=== PATIENT | male | born 1975 | race Hispanic/Latino ===

== ENCOUNTER 2025-04-25 14:57 | Emergency (ER) | payer OTHER ==
[2025-04-25 15:00] VITALS: PULSE 91; RESP 16; TEMP 98.9
[2025-04-25] MEDS ORDERED: IOPAMIDOL 370 MG/ML 100 ML INFUS..BTL INJ ONE (16:35)
[2025-04-25] MEDS: SODIUM CHLORIDE 0.9% 1000ML 1,000 ML IV ONE (17:15)
[2025-04-25] MEDS ORDERED: COLACE100 MG/10 PO (17:31)
[2025-04-25 17:57] VITALS: PULSE 8; RESP 20; TEMP 97.9; O2SAT 99
[2025-04-25] MEDS ORDERED: LOSARTAN-HCTZ1 EACH PO (17:57)
== END 2025-04-25 17:48 | disposition home or self-care (01) ==
LOC: FSED 15:01
DX: K59.00 Constipation, unspecified (principal); R10.31 Right lower quadrant pain
CPT/HCPCS: 74177; 80053; 81003; 85025; 99284; J7030; Q9967